=== PATIENT | female | born 1990 | race Caucasian/White ===

== ENCOUNTER → 2025-06-03 | Outpatient (CLI) | payer BC, OTHER, SELFPAY ==
--- NOTE | 2025-06-03 15:46 | XR_ITS ---
Examination: Pelvic ultrasound, transabdominal, complete Technique: Transabdominal ultrasound of the pelvis performed using grayscale imaging Date and time of exam: June 03, 2025 1535 hours INDICATIONS: Irregular heavy menses 3 months FINDINGS: Uterus 9.2 cm endometrial stripe 0.3 cm No uterine mass or intrauterine gestation Right ovary 2.6 cm arterial flow 13 mm follicular cyst Left ovary 4.3 cm arterial flow, small ovarian simple cyst 24 mm, 17 mm IMPRESSION: No uterine mass or intrauterine gestation Small benign bilateral ovarian cysts
== END | disposition home or self-care (01) ==
PROVIDERS: Referring Provider Obstetrics & Gynecology; Visit Provider Obstetrics & Gynecology
DX: N83.202 Unspecified ovarian cyst, left side (principal); N83.201 Unspecified ovarian cyst, right side
CPT/HCPCS: 76856

== ENCOUNTER 2025-09-06 07:30 | Day surgery (SDC) | payer BC, OTHER, SELFPAY ==
[2025-09-04 11:55] VITALS: BMI 33.7
[2025-09-04 13:19] LABS: Basophils # (Auto) 0.1 Thou/mm3 (0.0-0.2); Basophils % (Auto) 1 % (0-2.5); Eosinophils # (Auto) 0.3 Thou/mm3 (0.0-0.5); Eosinophils % (Auto) 3 % (0-10); Hematocrit 37.8 % (36.0-46.0); Hemoglobin 12.6 g/dL (12.0-16.0); Immature Granulocytes Auto 0.02 Thou/mm3 (0.00-0.00); Lymphocytes # (Auto) 4.0 Thou/mm3 (1.0-4.8); Lymphocytes % (Auto) 40 % (10-50); Mean Corpuscular HGB Conc 33.3 g/dl (31.0-37.0); Mean Corpuscular Hemoglobin 29.2 pg (25.0-35.0); Mean Corpuscular Volume 88 fL (80-100); Monocytes # (Auto) 0.8 Thou/mm3 (0.0-0.8); Monocytes % (Auto) 8 % (0-12); Neutrophils # (Auto) 4.8 Thou/mm3 (1.8-7.7); Neutrophils % (Auto) 48 % (37-80); Nucleated Red Blood Cell # 0.00 Thou/mm3 (0.00-0.00); Nucleated Red Blood Cell % 0 /100 WBC (0); Platelet Count 310 Thou/mm3 (140-440); RDW Standard Deviation 42.8 fL (36.4-46.3); Red Blood Count 4.31 Miln/mm3 (4.00-5.20); White Blood Count 9.9 Thou/mm3 (3.6-11.0)
[2025-09-04 13:42] LABS: Alanine Aminotransferase 17 U/L (10-49); Albumin, Serum 4.5 gm/dL (3.5-5.0); Albumin/Globulin Ratio 2.5 (1.2-2.2); Alkaline Phosphatase 119 U/L (46-116); Anion Gap 7 (7-16); Aspartate Amino Transferase 21 U/L (0-34); BUN/Creatinine Ratio 14 Ratio (12-20); Bilirubin,Total 0.2 mg/dL (0.3-1.2); Blood Urea Nitrogen 10 mg/dL (9-23); Calcium 8.8 mg/dL (8.3-10.6); Calcium (Corrected) 8.8 mg/dL (8.5-10.1); Carbon Dioxide 25.5 mMol/L (20.0-31.0); Chloride 110 mMol/L (98-107); Creatinine (Component) 0.7 mg/dL (0.6-1.3); Estimated Creatinine Clearance 98.6 mL/min (>60); Globulin 1.8 gm/dL (2.3-3.5); Glucose 102 mg/dL (74-106); Osmolality,Calculated 282 (275-295); Potassium 4.3 mMol/L (3.4-5.1); Sodium 142 mMol/L (136-145); Total Protein 6.3 gm/dL (5.7-8.2); eGFR > 60 See Note
[2025-09-04 13:46] LABS: HCG,Qualitative Serum Negative
[2025-09-06] VITALS (9 sets, daily range): BP systolic 98–128; BP diastolic 76–90; PULSE 72–83; RESP 14–17; TEMP 36.2–37; O2SAT 92–98; BMI 33.4
--- NOTE | 2025-09-06 08:22 | SUR.PREOP ---
Patient expressed gratitude for prayer before their procedure.
[2025-09-06] MEDS: RINGERS LACTATED 1000 ML 1,000 ML 20 ML IV (08:30)
--- NOTE | 2025-09-06 11:34 | SUR.PHASEI ---
1134: pt received from OR via [employer]. received report from BART Portillo and Dr. Raza. pt sleepy at this time. no s/s of resp. distress or discomfort. no s/s of pain or discomfort. no bleeding noted from peripad.
--- NOTE | 2025-09-06 11:41 | PD.GYNPROC ---
Operative Note - [employer] Procedure Date of procedure: 09/06/25 Procedure Performed: Hysteroscopy, dilation, curettage, NovaSure ablation Ectocervical and endocervical LEEP Indication: The patient is a 35-year-old -0-1-4 history of x 4, last one with a tubal ligation with heavy cycles. She also has a history of a high-grade ALEJANDRA Pap. She presents for a hysteroscopy, dilation, curettage, NovaSure ablation and a LEEP. Pre-Op diagnosis: 1. DUB 2. ASCUS favor HGSIL Post-Op diagnosis: 1. DUB 2. ASCUS favor HGSIL Anesthesia type: General Procedure description: After obtaining informed consent, the patient was brought back to the operating room and general anesthesia administered. She was then prepped and draped in the dorsal lithotomy position using Bryon stirrups in a normal sterile fashion. Patient was given 2 g of Ancef by anesthesia. Her bladder was emptied with an In-N-Out catheter. A weighted speculum inserted the patient's vagina and the anterior lip of the cervix grasped with a single-tooth tenaculum at the 12 o'clock position. The cervix was then gently dilated using Hegar dilators to a size 9. A 5 mm hysteroscopic camera was inserted and the uterine cavity surveyed. No submucosal fibroids or polyps were seen. Both tubal ostia were seen. The hysteroscopic camera was removed, and the endometrium underwent a brisk endometrial curettage using a wide loop endometrial curette. The scrapings were sent down to pathology. Cavity length measured at 6 cm cavity the width was measured at 4.5 cm. The NovaSure endometrial ablation device was inserted and turned on. Cavity assessment was easily passed. The NovaSure ablation cycle was then started, and the cavity treated at a power of 142 W for a total of 45 seconds. At the end of the ablation, the NovaSure endometrial ablation device was removed from the patient's uterine cavity and the hysteroscopic camera reintroduced. Pictures were taken of the post ablation findings. A good burn effect was noted all 4 quadrants of the patient's uterus. An ectocervical LEEP was then performed with a wide loop electrocautery instrument at a cutting of 50. The pathology was handed off the operating field. An endocervical LEEP was then performed with a more narrow loop electrocautery instrument. The endocervical biopsy was handed off as a separate specimen. The cervix was then treated with rollerball electrocautery at a cauterization of 50 until excellent hemostasis was noted. SNO hemostatic material was placed across the cervix. All instrumentation was then removed from the patient's vagina and the tenaculum site noted to be hemostatic. The patient tolerated the procedure well, sponge, lap, needle, and instrument counts were correct x 2. The patient went to the recovery area awake and in stable condition. Pathology: 1. Endometrial curettings 2. Ecto cervical biopsy. 3. Endo cervical biopsy Fluids: crystalloid Fluid amount (mL): 800 Urine output (mL): 25 Specimen: other (Endometrial curettings, ectocervical biopsy, endocervical biopsy) Implants: None Estimated blood loss (ml): 50 Findings: Normal anterior uterine cavity. No intracavitary fibroids or polyps. Both tubal ostia seen. Good burn effect after ablation. Grossly normal ectocervix Complications: none Surgical staff Operation Date: 09/06/25 09:45 <No data on this case meets the specified criteria> Dr. Elliot Raza Diagnosis Discharge Diagnosis (1) DUB (dysfunctional uterine bleeding): Status: Acute Problem details: Status post successful hysteroscopy, dilation, curettage, NovaSure ablation. (2) High grade squamous intraepithelial cervical dysplasia: Status: Acute Problem details: Status post successful LEEP. Follow-up in 4 weeks in clinic. Follow-up with Pap smears every 4 months for 1 year. Problem List Completed Was Problem List Reviewed/Reconciled?: Yes
--- NOTE | 2025-09-06 11:45 | SUR.PHASEI ---
1145: pt requested to use bedpan, able to urinate with small amount of urine without any issues.
[2025-09-06] MEDS: fentaNYL CIT INJ 50 mCg/ML AMP 2ML IVP (11:58)
[2025-09-06] MEDS: ACETAMINOPHEN INJ 1,000 MG/100 ML VIAL 1000 MG IV (12:02)
--- NOTE | 2025-09-06 12:21 | SUR.PHASEI ---
1221: pt able to drink water with ice chips without issues.
--- NOTE | 2025-09-06 12:43 | SUR.PHASEII ---
1243: pt discharge to home via wheelchair. pt alert and oriented. no s/s of resp. distress or discomfort. no s/s of pain or discomfort. figueroa-pad in place with scant amount of bleeding observed. discharge instructions given to mother and pt, verbalizes understanding. all belongings brought given back to patient.
== END 2025-09-06 12:43 | disposition home or self-care (01) ==
PROVIDERS: Referring Provider Obstetrics & Gynecology; Visit Provider Obstetrics & Gynecology
PROC: 0U5B8ZZ Destruction of Endometrium, Via Natural or Artificial Opening Endoscopic (ICD-10-PCS; CPT 58563; principal; 2025-09-06 09:30)
PROC: 0UBC7ZZ Excision of Cervix, Via Natural or Artificial Opening (ICD-10-PCS; CPT 57522; 2025-09-06 09:30)
DX: N87.9 Dysplasia of cervix uteri, unspecified (principal); N93.8 Other specified abnormal uterine and vaginal bleeding
CPT/HCPCS: 57522; 58563; 36415; 80053; 84703; 85025; 86850; 86900; 86901; A4649; J0131; J0690; J1100; J2250; J2704; J2765; J3010; J7120; A9270

== ENCOUNTER 2025-10-04 14:41 | Outpatient (AMB) | payer BC, OTHER, SELFPAY ==
[2025-10-04 14:51] VITALS: BP 128/67; PULSE 92; RESP 18; TEMP 36.6; O2SAT 97; BMI 34.1
--- NOTE | 2025-10-04 14:51 | GYNCLNT_ITS ---
Vital Signs 10/04/25 14:51 Height 1.5 m Height Method Stated Weight 76.771 kg Weight Measurement Method Standing Scale BMI 34.1 BP 128/67 Blood Pressure Source Automatic Cuff Blood Pressure Location Left Upper Arm Position Sitting Respiration 18 Pulse 92 Pulse Source Monitor Temp 97.8 F Temp Source Oral Pulse Oximetry (%) 97 Oxygen Delivery Method Room Air Allergies/Home Meds Allergies & Medications Allergies No Known Allergies Allergy (Verified 10/04/25 14:57) Intake Visit Data Collection New Patient or Established: Established Patient (seen at [facility] within 3 years) Reason for Visit:: POST OP FOLLOW UP Seen by Clinical Staff ONLY (RN/MA): No Furnace Operator Required: No Do You Feel Safe at Home: Yes Authorities Contacted: N/A PCP or OBGYN visit in last 3 months: Yes Hx Now: No Are you currently on any form of Control: No Pain Present Currently: No Pain Scale Used: Cunningham-Leroy/Numerical Pain scale:: 0 Smoking Status Smoking Status: Current every day smoker Cessation Counseling Provided: WANDER was advised that quitting smoking is the single most important factor to protect the health of themselves and their family. Discussed the benefits of quitting smoking with patient. Encouraged patient to quit smoking and provided Cessation assistance materials and resources. 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 Past Medical History: No Hx Neurological Disorders, No Hx Hypothyroidism, No Hx Hyperthyroidism, No Hx Breast Cancer, No Hx Cardiac Disorders, No Hx Hypertension, No Hx Cancer, No Hx Blood Disorders, No Hx Anemia, Yes Hx Gastrointestinal Disorders (H PYLORI 2008), No Hx Renal Disease, No Hx Deep Vein Thrombosis, No Hx Diabetes Mellitus Type 1, No Hx Diabetes Mellitus Type 2, Yes Hx Tubal Ligation and No Hx Polycystic Ovarian Syndrome Questionnaires Covid-19 Vaccine Questionnaire Has patient been vacinated for Covid-19 Have you been vacinated for Covid-19: Yes PHQ-9 PHQ-2 Over the last 2 weeks, how often have you been bothered by any of the following problems? 1. Little interest or pleasure in doing things: not at all 2. Feeling down, depressed, or hopeless: not at all Total score: 0 PHQ-9 3. Trouble falling or staying asleep, or sleeping too much: Not at all 4. Feeling tired or having little energy: Not at all 5. Poor appetite or overeating: Not at all 6. Feeling bad about yourself - or that you are a failure or have let yourself or your family down: Not at all 7. Trouble concentrating on things, such as reading the newspaper or watching television: Not at all 8. Moving or speaking so slowly that other people could have noticed? - Or the opposite - being so fidgety or restless that you have been moving around a lot more than usual: not at all 9. Thoughts that you would be better off or of hurting yourself in some way: Not at all Total score: 0 Source: Developed by Drs. Jerzy Newberry, Aide Holguin, Marco Antonio Patterson and colleagues, with an educational adriane from [employer]. 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 She reports no pain no bleeding. She presents for a cervical exam to ensure her cervix is healed. She has not had intercourse since surgery. She has not had any heavy bleeding at all and thinks she already had a cycle. She has a history of high-grade ALEJANDRA. Her pathology was reviewed with her revealing no evidence of dysplasia on her ectocervical LEEP margins or endocervical LEEP margins are Endometrial biopsy was negative for any precancerous cells. Review of Systems Constitutional Comments: No heavy bleeding. No pain. No abnormal discharge or odor. Exam General Limitations: no limitations General Appearance: alert, in no apparent distress, cooperative, healthy appearing and well groomed External exam: Present normal external exam Speculum exam: Present normal speculum exam and other (Well-healed. No signs of recent surgery.) Office Procedures [facility] LOC & Office Proc's Nursing/Assessment Patient Status: Established Patient OB Clinic Nursing Assessment: Medication Reconciliation, Update PMH in EMR and Vital Signs OB Clinic Coordination of Care: Complex Care and Chronic Disease 1-5, Consent,records obtained, informed consent, Education Simp Pt/Fam, Lab and Imaging orders, Results/Orders obtained and Staff clarify orders Established Patient Charge Established Patient Point Assignment: 105 Established Patient Point Charge: EP Level 3 (80-115) Assessment & Plan Diagnosis / Problem List (1) DUB (dysfunctional uterine bleeding): Status: Acute Assessment and Plan: Status post NovaSure endometrial ablation. She should call for any heavy pain. (2) High grade squamous intraepithelial cervical dysplasia: Status: Acute Assessment and Plan: Status post ectocervical and endocervical LEEP111/06/24 all margins are negative. Plan for repeat Pap smear every 4 months for 1 year. Patient aware.
== END 2025-10-04 15:19 | disposition home or self-care (01) ==
LOC: HODSOBC 14:41
PROVIDERS: Supervising Provider Obstetrics & Gynecology; Visit Provider Obstetrics & Gynecology
DX: Z48.816 Encounter for surgical aftercare following surgery on the genitourinary system (principal); N93.8 Other specified abnormal uterine and vaginal bleeding; R87.613 High grade squamous intraepithelial lesion on cytologic smear of cervix (HGSIL); F17.210 Nicotine dependence, cigarettes, uncomplicated; Z71.6 Tobacco abuse counseling
CPT/HCPCS: 99213; G0463